=== PATIENT | female | born 1985 | race African-American/Black ===

== ENCOUNTER 2017-02-05 05:53 | Inpatient (IN) | payer OTHER ==
[~2017-02-05] VITALS: Ht 167.6 cm; Wt 97.5 kg
[2017-02-05] MEDS ORDERED: morphine 4 MG/ML VIAL IV STA (06:39)
[2017-02-05] MEDS ORDERED: ONDANSETRON 4 MG INJ IV STA (06:39)
[2017-02-05] MEDS ORDERED: SOD CHLORIDE 0.9% 1,000 ML IV STA (06:39)
[2017-02-05 07:25] LABS: ADD SCAN DIFF NO
[2017-02-05 07:27] LABS: BASOPHILS % 0.2 % (0.0-2.0); EOSINOPHILS % 0.4 % (0.0-7.0); HEMATOCRIT 45.2 % (37.0-47.0); HEMOGLOBIN 14.6 g/dl (12.0-16.0); LYMPHOCYTES # 1.6 10^3/ul (0.8-2.9); LYMPHOCYTES % 15.6 % (15.0-51.0); MEAN CORPUSCULAR HEMOGLOBIN 27.3 pg (29.0-33.0); MEAN CORPUSCULAR HGB CONC 32.3 g/dl (32.0-37.0); MEAN CORPUSCULAR VOLUME 84.6 fl (82.0-101.0); MEAN PLATELET VOLUME 9.6 fl (7.4-10.4); MONOCYTE # 0.6 10^3/ul (0.3-0.9); MONOCYTES % 5.4 % (0.0-11.0); NEUTROPHIL # 8.1 10^3/ul (1.6-7.5); NEUTROPHILS % 77.8 % (39.0-77.0); PLATELET COUNT 329 10^3/UL (140-415); RED BLOOD COUNT 5.34 10^6/ul (4.20-5.40); RED CELL DISTRIBUTION WIDTH 14.1 % (11.5-14.5); WHITE BLOOD COUNT 10.5 10^3/ul (4.8-10.8)
[2017-02-05 07:33] LABS: ADD UMIC NO; URINE BILIRUBIN (Dip) NEGATIVE (NEGATIVE); URINE BLOOD (Dip) NEGATIVE (NEGATIVE); URINE COLOR LT. YELLOW (YELLOW); URINE GLUCOSE (Dip) NEGATIVE (NEGATIVE); URINE KETONES (Dip) 3+ (NEGATIVE); URINE LEUKOCYTE ESTERASE (Dip) NEGATIVE (NEGATIVE); URINE NITRITE (Dip) NEGATIVE (NEGATIVE); URINE TOTAL PROTEIN (Dip) NEGATIVE (NEGATIVE); URINE UROBILINOGEN (Dip) 0.2 E.U./dL (0.1-1.0)
--- NOTE | 2017-02-05 07:45 | RADRPT ---
PROCEDURE: US Abdomen. CLINICAL INDICATION: Abdominal pain TECHNIQUE: Sweet scale and color Doppler imaging of the right upper quadrant COMPARISON: 08/16/2013 FINDINGS: The aorta and visualized inferior vena cava are unremarkable in appearance. The liver is homogeneou s in echotexture and no focal liver lesions are seen. A small amount of sludge is seen in the gallbl adder. No Pineda's sign was reported. No wall thickening or pericholecystic fluid was seen. No int ra or extrahepatic biliary dilatation is seen. The common bile duct measures 4 mm in maximal dimens ion. The right kidney measures 9.2 cm. No hydronephrosis or renal calculi are seen. The pancreas i s partially obscured by bowel gas. No ascites is seen. IMPRESSION: Study slightly limited by bowel gas. Sludge in the gallbladder. Otherwise negative. RPTAT: HLBE Physician Cristina Date Time Electronically viewed and signed by Daina Dominguez Physician on 02/05/2017 07:45 ANGEL/
[2017-02-05 07:48] LABS: ALBUMIN/GLOBULIN RATIO 1.56; BILIRUBIN,INDIRECT 0.4 mg/dl (0-1.1); BILIRUBIN,TOTAL 0.4 mg/dl (0.2-1.3); CALCIUM 9.8 mg/dl (8.4-10.2); CREATININE 0.95 mg/dl (0.44-1.00); POTASSIUM 3.8 mmol/L (3.5-5.1); TOTAL PROTEIN 8.2 g/dl (6.1-8.1)
[2017-02-05] MEDS ORDERED: METOCLOPRAMIDE 10 MG INJ IV ONE (08:00)
--- NOTE | 2017-02-05 08:26 | ERA ---
ER Documentation Chief Complaint Date/Time DATE: 02/05/17 TIME: 08:09 Chief Complaint epigastric sharp pain,NV HPI This is a 31 year old female presenting to the emergency department complaining of generalized abdominal pain, nausea, nonbilious, nonbloody vomiting for the past 1.5 week with new onset of diarrhea that started this morning. Patient states pain is in all quadrants but worse in the epigastric region. She denies fevers, dysuria, melena, hematochezia, chest pain, shortness of breath. Patient has been seen at [facility] on 01/31 in which she received blood work and CT imaging that was normal. She was discharged with sucralfate, antacid, Pepcid, and Tylenol no 3. She returned on 02/02 to [facility], in which they have done blood work and sent her home. Patient states medications do not work, she is unable to keep any food down. Patient states she saw her primary care physician yesterday and they are in process of referring her to a GI specialist. She returns to the emergency department today, stating her abdominal pain worsened with diarrhea ROS All systems reviewed and are negative except as per history of present illness. Medications Home Meds No Active Prescriptions or Reported Meds Allergies Allergies: Coded Allergies: No Known Allergy (Unverified , 08/16/13) PMhx/Soc Medical and Surgical Hx: pt denies Medical Hx, pt denies Surgical Hx History of Surgery: No Anesthesia Reaction: No Hx Neurological Disorder: No Hx Respiratory Disorders: No Hx Cardiac Disorders: No Hx Psychiatric Problems: No Hx Miscellaneous Medical Probl: No Hx Alcohol Use: No Hx Substance Use: Yes (marijuana) Hx Tobacco Use: No Smoking Status: Never smoker Physical Exam Vitals Vital Signs Date Time Temp Pulse Resp B/P Pulse Ox O2 Delivery O2 Flow Rate FiO2 02/05/17 06:00 97.7 66 18 131/61 99 Physical Exam GENERAL: well-developed/well-nourished, in no apparent distress, non-toxic appearing. Patient is hunched over and uncooperative HENT: NC/AT, dry mouth and chapped lips EYES: Conjunctiva normal NECK: Supple, no lymphadenopathy PULM: CTA bilaterally, no rales, rhonchi, or wheezing heard CV: Normal S1S2, RRR, good capillary refill GI: Soft, non-distended, tender to palpation in all quadrants, mostly in the epigastric region Normal bowel sounds, no masses or organomegaly felt on exam No gross peritonitis, no bruits Negative Rovsing, negative Pineda, negative McBurney's point, Negative CVAT BACK: No masses EXT: No clubbing, cyanosis, or edema NEURO: Alert and Orientated SKIN: Intact, normal turgor PSYCH: No SI or HI Result Diagram: 02/05/17 0650 02/05/17 0650 Results 24 hrs Laboratory Tests Test 02/05/17 06:40 02/05/17 06:50 Urine Color LT. YELLOW Urine Clarity CLEAR Urine pH 7.0 Urine Specific [place] 1.015 Urine Ketones 3+ Urine Nitrite NEGATIVE Urine Bilirubin NEGATIVE Urine Urobilinogen 0.2 E.U./dL Urine Leukocyte Esterase NEGATIVE Urine Hemoglobin NEGATIVE Urine Glucose NEGATIVE% Urine Total Protein NEGATIVE White Blood Count 10.510^3/ul Red Blood Count 5.3410^6/ul Hemoglobin 14.6g/dl Hematocrit 45.2% Mean Corpuscular Volume 84.6fl Mean Corpuscular Hemoglobin 27.3pg Mean Corpuscular Hemoglobin Concent 32.3g/dl Red Cell Distribution Width 14.1% Platelet Count 49626^3/UL Mean Platelet Volume 9.6fl Neutrophils % 77.8% Lymphocytes % 15.6% Monocytes % 5.4% Eosinophils % 0.4% Basophils % 0.2% Nucleated Red Blood Cells % 0.0/100WBC Neutrophils # 8.110^3/ul Lymphocytes # 1.610^3/ul Monocytes # 0.610^3/ul Eosinophils # 0.010^3/ul Basophils # 0.010^3/ul Nucleated Red Blood Cells # 0.010^3/ul Sodium Level 142mmol/L Potassium Level 3.8mmol/L Chloride Level 103mmol/L Carbon Dioxide Level 24mmol/L Anion Gap 19 Blood Urea Nitrogen 14mg/dl Creatinine 0.95mg/dl Glucose Level 112mg/dl Calcium Level 9.8mg/dl Total Bilirubin 0.4mg/dl Direct Bilirubin 0.00mg/dl Indirect Bilirubin 0.4mg/dl Aspartate Amino Transf (AST/SGOT) 22IU/L Alanine Aminotransferase (ALT/SGPT) 47IU/L Alkaline Phosphatase 117IU/L Total Protein 8.2g/dl Albumin 5.0g/dl Globulin 3.20g/dl Albumin/Globulin Ratio 1.56 Lipase 193U/L Serum HCG, Qualitative NEGATIVE Current Medications Medications (Trade) Dose Ordered Sig/Shalom Route PRN Reason Start Time Stop Time Status Last Admin Dose Admin Sodium Chloride (NS) 1,000 ml @ 1,000 mls/hr Q1H STAT IV 02/05/17 06:39 02/05/17 07:38 DC 02/05/17 07:00 Morphine Sulfate (morphine) 6 mg ONCE STAT IV 02/05/17 06:39 02/05/17 06:43 DC 02/05/17 06:59 Ondansetron HCl (Zofran Inj) 4 mg ONCE STAT IV 02/05/17 06:39 02/05/17 06:43 DC 02/05/17 07:00 Metoclopramide HCl (Reglan) 10 mg ONCE ONCE IV 02/05/17 08:00 02/05/17 08:01 DC 02/05/17 07:55 IV Flush 10 ml 10 ml STK-MED ONCE .ROUTE 02/05/17 09:38 02/05/17 09:39 DC Sodium Chloride (NS) 100 ml @ ud STK-MED ONCE .ROUTE 02/05/17 09:38 02/05/17 09:39 DC Iohexol (Omnipaque 300mg/ ml) 150 ml STK-MED ONCE .ROUTE 02/05/17 09:38 02/05/17 09:39 DC Procedures/MDM This is a 31 year old female accompanied with mother presenting to the emergency department complaining of worsening generalized abdominal pain, nausea , nonbilious, nonbloody vomiting for the past 1.5 week with new onset of diarrhea that started this morning. I have reviewed patient's chart before and she has been seen here before for similar complaints. I have consulted colleague at [facility]. Patient has been seen at [facility] on 01/31 in which she received blood work and CT imaging that was normal. She was discharged with sucralfate, antacid, Pepcid, and Tylenol no 3. She returned on 02/02 to [facility], in which they have done blood work and sent her home. IV access is established. Lab work was drawn. CBC did not show any evidence of leukocytosis or anemia. CMP did not show any evidence of renal, liver, or electrolyte abnormalities. Lipase was normal. UA did not show any evidence of hemoglobin or urinary tract infection. Gallbladder US: Study slightly limited by bowel gas. Sludge in the gallbladder. Otherwise negative. CT abd and pelvis without contrast: No acute intra-abdominal nor intrapelvic process. Incidentally noted are bilateral pars defects at L5-S1 resulting in 8 mm of anterolisthesis of L5 relative to S1. Patient diagnostic testing was unremarkable however since patient went to the emergency department 3 times in 1 week she will be admitted for further evaluation and management for intractable abdominal pain. I discussed with my supervising physician Dr. Iverson in which he will contact the hospitalist on site for admission. Patient is stable to be transferred to [facility] floor Departure Diagnosis: Primary Impression: Abdominal pain Condition: Serious ROBERT PRESLEY PA-C Feb 05, 2017 08:22
[2017-02-05] MEDS ORDERED: SOD CHLORIDE 0.9% 100 ML ONE (09:38)
[2017-02-05] MEDS ORDERED: IOHEXOL 300MG/ML 150 ML BTL ONE (09:38)
--- NOTE | 2017-02-05 10:39 | RADRPT ---
PROCEDURE: CT Abdomen and Pelvis with contrast. CLINICAL INDICATION: Flu-like symptoms TECHNIQUE: CT scan of the abdomen and pelvis with contrast was performed on a multi-detector high- resolution CT scanner. The patient was scanned following the uncomplicated intravenous administrati on of 100 cc of Omnipaque 300. Coronal and sagittal reformatted images were obtained from the axial source images. Images were reviewed on a high-resolution PACS workstation. The total exam CTDI equa ls 17.7 mGy and the total exam DLP equals 1076 mGy-cm. COMPARISON: None. FINDINGS: Limited evaluation of the lung bases are clear. The liver, spleen, bilateral adrenal glands, pancreas, and gallbladder are normal-appearing. No biliary dilatation. The portal vein is patent. Aside from a sub centimeter low density lesion in the left renal mid pole which may represent a cyst , the bilateral kidneys are normal-appearing without hydronephrosis nor suspicious renal mass. The small and large bowel are thin-walled and nondilated without evidence for obstruction. The appen bobby is normal. Urinary bladder is grossly normal. The uterus is grossly normal. Bilateral adnexa are within juan l limits. Trace pelvic free fluid is likely physiologic. There are bilateral L5-S1 pars defects which results in 8 mm of anterolisthesis of L5 relative to S1 . Bilateral pars defects also present at L2-L3 without spondylolisthesis at this level. No suspicio us osseous lesions. IMPRESSION: No acute intra-abdominal nor intrapelvic process. Incidentally noted are bilateral pars defects at L5-S1 resulting in 8 mm of anterolisthesis of L5 re lative to S1. Physician Marcin Date Time Electronically viewed and signed by Physician Marcin on 02/05/2017 10:39 ML/
[2017-02-05] MEDS ORDERED: ONDANSETRON 4 MG INJ IV PRN ×2 (12:30→13:30)
[2017-02-05] MEDS ORDERED: ACETAMINOPHEN 325 MG TAB PO PRN ×2 (12:30→13:30)
[2017-02-05] MEDS ORDERED: MAGNESIUM HYDROXIDE 30ML CUP PO PRN (13:30)
[2017-02-05] MEDS ORDERED: ACETAMINOPHEN 650 MG SUPP PR PRN (13:30)
[2017-02-05] MEDS ORDERED: NACL 0.9% 3 ML SYG IV SCH (13:30)
[2017-02-05] MEDS ORDERED: BISACODYL 10 MG SUPP PR PRN (13:30)
[2017-02-05] MEDS ORDERED: HYDROCODONE/APAP (5/325) TAB PO PRN ×2 (13:30)
[2017-02-05] MEDS ORDERED: DOCUSATE SODIUM 100 MG CAP PO PRN (13:30)
[2017-02-05] MEDS: SOD CHLORIDE 0.9% 1,000 ML IV SCH (13:35)
--- NOTE | 2017-02-05 15:01 | CONS ---
Date/Time of Note Date/Time of Note DATE: 02/05/17 TIME: 14:47 Assessment/Plan Assessment/Plan Additional Assessment/Plan Assessment * Intractable vomiting Plan * EGD risks and benefit explained to patient ,patient agreed plan procedure * Reglan 10 mg TID * PPI Consultation Date/Type/Reason Admit Date/Time Date of Consultation: Feb 05, 2017 Type of Consultation: Gastroenterology Reason for Consultation Intractable vomiting Referring Provider: CRISPIN WRIGHT Hx of Present Illness 31 year old female who presented in the ER because of epigastric pain and vomiting.Present condition apparently started 4 days prior to admission as vague epigastric pain with associated non bilious vomiting.Patient denies any hematochezia,melena,chest pain ,shortness of breath nor hematemesis..She consulted various Emergency room to no avail.1 day prior to admission, intractable vomiting recurred,consulted primary physician and was referred here for evaluation Emergency room course,CT Abdomen/pelvis revealed No acute intra-abdominal nor intrapelvic process. Incidentally noted are bilateral pars defects at L5-S1 resulting in 8 mm of anterolisthesis of L5 relative to S1.WBC10.5 Hemoglobin 14.6,hematocrit 45.2.Na 142,K 3.8.Presently ,Patient denies any episode of vomiting and abdominal pain Constitutional: improved, no complaints Eyes: no complaints ENT: no complaints Respiratory: no complaints Cardiovascular: no complaints Gastrointestinal: no complaints Genitourinary: no complaints Musculoskeletal: no complaints Skin: no complaints Neurologic: no complaints Endocrine: no complaints Lymphatic: no complaints Psychological: nl mood/affect, no complaints Immunologic: no complaints Past Medical History Medical History: no pertinent history Past Surgical History Past Surgical Hx: no surgical history Family History Significant Family History: no pertinent family hx Social History Smoking Status: Never smoker Exam/Review of Systems Vital Signs Vitals Vital Signs Date Time Temp Pulse Resp B/P Pulse Ox O2 Delivery O2 Flow Rate FiO2 02/05/17 06:00 97.7 66 18 131/61 99 Exam Constitutional: alert, oriented, well developed Psych: nl mood/affect Head: atraumatic, normocephalic Eyes: PERRL, nl conjunctiva, nl sclera ENMT: nl external ears & nose Neck: non-tender, supple Respiratory: clear to auscultation, normal air movement Cardiovascular: nl pulses, regular rate and rhythm Gastrointestinal: nl liver, spleen, non-tender, soft Musculoskeletal: nl extremities to inspection, nl gait and stance Extremities: normal pulses Neurological: DIVEMASTER II-XII intact, nl mental status, nl speech, nl strength Skin: nl turgor, No rash or lesions Lymph: nl lymph nodes Results Result Diagram: 02/05/17 0650 02/05/17 0650 Results 24 hrs Laboratory Tests Test 02/05/17 06:40 02/05/17 06:50 Urine Color LT. YELLOW Urine Clarity CLEAR Urine pH 7.0 Urine Specific [place] 1.015 Urine Ketones 3+ H Urine Nitrite NEGATIVE Urine Bilirubin NEGATIVE Urine Urobilinogen 0.2 E.U./dL Urine Leukocyte Esterase NEGATIVE Urine Hemoglobin NEGATIVE Urine Glucose NEGATIVE Urine Total Protein NEGATIVE White Blood Count 10.5 Red Blood Count 5.34 Hemoglobin 14.6 Hematocrit 45.2 Mean Corpuscular Volume 84.6 Mean Corpuscular Hemoglobin 27.3 L Mean Corpuscular Hemoglobin Concent 32.3 Red Cell Distribution Width 14.1 Platelet Count 329 Mean Platelet Volume 9.6 Neutrophils % 77.8 H Lymphocytes % 15.6 Monocytes % 5.4 Eosinophils % 0.4 Basophils % 0.2 Nucleated Red Blood Cells % 0.0 Neutrophils # 8.1 H Lymphocytes # 1.6 Monocytes # 0.6 Eosinophils # 0.0 Basophils # 0.0 Nucleated Red Blood Cells # 0.0 Sodium Level 142 Potassium Level 3.8 Chloride Level 103 Carbon Dioxide Level 24 Anion Gap 19 H Blood Urea Nitrogen 14 Creatinine 0.95 Glucose Level 112 Calcium Level 9.8 Total Bilirubin 0.4 Direct Bilirubin 0.00 Indirect Bilirubin 0.4 Aspartate Amino Transf (AST/SGOT) 22 Alanine Aminotransferase (ALT/SGPT) 47 Alkaline Phosphatase 117 Total Protein 8.2 H Albumin 5.0 H Globulin 3.20 Albumin/Globulin Ratio 1.56 Lipase 193 Serum HCG, Qualitative NEGATIVE Medications Medications Current Medications Sodium Chloride (NS) 1,000 ml @ 80 mls/hr [id number] IV Last administered on t 13:35; Admin Dose 80 MLS/HR; Start 02/05/17 at 13:10 Ondansetron HCl (Zofran Inj) 4 mg Q6H PRN IV NAUSEA AND/OR VOMITING; Start 02/05 at 13:30 Acetaminophen (Tylenol Tab) 650 mg Q6H PRN PO PAIN LEVEL 1-3 OR FEVER; Start at 13:30 Acetaminophen (Tylenol Supp) 650 mg Q6H PRN [place] PAIN LEVEL 1-3 OR FEVER; Start 02/05/17 at 13:30 Acetaminophen/ Hydrocodone Bitart ([place] (5/325)) 1 tab Q6H PRN PO MODERATE PAIN LEVEL 4-6; Start 02/05/17 at 13:30 Acetaminophen/ Hydrocodone Bitart ([place] (5/325)) 2 tab Q6H PRN PO SEVERE PAIN LEVEL 7-10; Start 02/05/17 at 13:30 Morphine Sulfate (morphine) 2 mg Q4H PRN IV SEVERE PAIN LEVEL 7-10; Start at 13:30 Docusate Sodium (Colace) 100 mg Q12H PRN PO CONSTIPATION; Start 02/05/17 at 13: 30 Magnesium Hydroxide (Milk Of Mag) 30 ml DAILY PRN PO CONSTIPATION; Start at 13:30 Bisacodyl (Dulcolax Supp) 10 mg DAILY PRN [place] CONSTIPATION; Start 02/05/17 at 13: 30 Pantoprazole (Protonix Iv) 40 mg DAILY@06 IV ; Start 02/06/17 at 06:00 MARIE VIVAS MD Feb 05, 2017 14:57
--- NOTE | 2017-02-05 16:31 | HP ---
Date/Time of Note Date/Time of Note DATE: 02/05/17 TIME: 16:24 Assessment/Plan VTE Prophylaxis VTE Prophylaxis Intervention: SCD's Assessment/Plan Chief Complaint/Hosp Course Assessment and plan 1. Intractable nausea and vomiting. CT scan of the abdomen was negative for any acute intra-abdominal findings. Lipase level was normal. Health Services Coordinator consulted. Follow up with recommendations. Will provide with IV hydration and keep n.p.o. for now. Will provide analgesics. Antipyretics will also be provided 2. Obesity. Weight reduction was advised. DVT prophylaxis: SCDs GERD prophylaxis: PPI Admission process 40 minutes Discussed plan of care with Dr. Ortiz Problems: HPI/ROS Admit Date/Time Admit Date/Time Hx of Present Illness There is a 31-year-old female with no reported past medical history who came [facility] due to reports of abdominal pain. Of note patient did report she had been having abdominal pain for 2 weeks duration with reported pain with oral consumption of food. She did report she went to the hospital twice at [facility] and was sent home with pain medication. At that time she was told she might have some gastritis. Patient did report that Her abdominal pain did continue to worsen and as such did come [facility] for further evaluation. She did have a gallbladder ultrasound that did show her to have some sludge in the gallbladder but otherwise negative study. Additionally CT scan of her abdomen did show her to have no acute intra-abdominal or intrapelvic process. Lipase level was noted at 193. BMP otherwise unremarkable. She remained afebrile and she did report no fevers or chills prior to her abdominal pain. She does report taking Maalox as well as Pepcid at home. She describes her pain as epigastric and going to midsternal area sharp-like in nature. She does have some emesis nonbilious nonbloody. She does report that her last bowel movement was this morning. She also reports having a regular bowel movements. No fevers or chills or chest pain or shortness of breath. We will evaluate her for the aformentiond issues ROS 12 point review of systems obtained and entirely negative except that mentioned in history of present illness Eyes: no complaints ENT: no complaints Respiratory: no complaints Cardiovascular: no complaints Gastrointestinal: no complaints Genitourinary: no complaints Musculoskeletal: no complaints Skin: no complaints Neurologic: no complaints Lymphatic: no complaints Psychological: nl mood/affect Immunologic: no complaints PMH/Family/Social Past Medical History Medical History: no pertinent history Past Surgical History Past Surgical Hx: no surgical history Social History Smoking Status: Never smoker Exam/Review of Systems Vital Signs Vitals Vital Signs Date Time Temp Pulse Resp B/P Pulse Ox O2 Delivery O2 Flow Rate FiO2 02/05/17 06:00 97.7 66 18 131/61 99 Exam Constitutional: alert, oriented Psych: anxiety Eyes: nl conjunctiva Neck: supple, No jvd Respiratory: clear to auscultation, normal air movement Cardiovascular: regular rate and rhythm Gastrointestinal: soft, tender Extremities: normal pulses Neurological: FRAMING MECHANIC II-XII intact, nl mental status, nl speech Skin: nl turgor Labs Result Diagram: 02/05/17 0650 02/05/17 0650 Medications Medications Current Medications Sodium Chloride (NS) 1,000 ml @ 80 mls/hr [id number] IV Last administered on t 13:35; Admin Dose 80 MLS/HR; Start 02/05/17 at 13:10 Ondansetron HCl (Zofran Inj) 4 mg Q6H PRN IV NAUSEA AND/OR VOMITING; Start 02/05 at 13:30 Acetaminophen (Tylenol Tab) 650 mg Q6H PRN PO PAIN LEVEL 1-3 OR FEVER; Start at 13:30 Acetaminophen (Tylenol Supp) 650 mg Q6H PRN [place] PAIN LEVEL 1-3 OR FEVER; Start 02/05/17 at 13:30 Acetaminophen/ Hydrocodone Bitart ([place] (5/325)) 1 tab Q6H PRN PO MODERATE PAIN LEVEL 4-6; Start 02/05/17 at 13:30 Acetaminophen/ Hydrocodone Bitart ([place] (5/325)) 2 tab Q6H PRN PO SEVERE PAIN LEVEL 7-10; Start 02/05/17 at 13:30 Morphine Sulfate (morphine) 2 mg Q4H PRN IV SEVERE PAIN LEVEL 7-10; Start at 13:30 Docusate Sodium (Colace) 100 mg Q12H PRN PO CONSTIPATION; Start 02/05/17 at 13: 30 Magnesium Hydroxide (Milk Of Mag) 30 ml DAILY PRN PO CONSTIPATION; Start at 13:30 Bisacodyl (Dulcolax Supp) 10 mg DAILY PRN [place] CONSTIPATION; Start 02/05/17 at 13: 30 Pantoprazole (Protonix Iv) 40 mg DAILY@06 IV ; Start 02/06/17 at 06:00 CRISPIN WRIGHT Feb 05, 2017 16:31
[2017-02-05] MEDS: morphine 2 MG INJ IV PRN ×2 (19:33→23:50)
[2017-02-05 21:02] VITALS: TEMP 97.9
[2017-02-05 21:31] VITALS: BP 111/55; RESP 18
[2017-02-05 23:26] VITALS: Ht 167.6 cm; Wt 97.5 kg
[2017-02-06] VITALS (8 sets, daily range): BP systolic 108–144; BP diastolic 51–77; PULSE 52–66; RESP 17–22
[2017-02-06] MEDS: SOD CHLORIDE 0.9% 1,000 ML IV SCH (01:44)
[2017-02-06] MEDS: PANTOPRAZOLE 40 MG INJ IV SCH (05:41)
[2017-02-06 06:51] LABS: ALBUMIN 3.8 g/dl (3.3-4.9); ALBUMIN/GLOBULIN RATIO 1.58; BILIRUBIN,INDIRECT 0.3 mg/dl (0-1.1); BILIRUBIN,TOTAL 0.3 mg/dl (0.2-1.3); CALCIUM 8.4 mg/dl (8.4-10.2); CHOL/HDL RATIO 2.7 RATIO; CREATININE 0.81 mg/dl (0.44-1.00); PHOSPHORUS 3.4 mg/dl (2.5-4.9); POTASSIUM 3.6 mmol/L (3.5-5.1); TOTAL PROTEIN 6.2 g/dl (6.1-8.1)
[2017-02-06 07:04] LABS: T3 UPTAKE 49.7 % (23.5-40.5)
[2017-02-06 07:18] LABS: THYROID STIMULATING HORMONE 0.428 MIU/L (0.465-4.680)
[2017-02-06] MEDS: morphine 2 MG INJ IV PRN ×3 (07:26→23:16)
[2017-02-06] MEDS: D5-0.2 NACL + KCL 20 MEQ 1,000 ML IV SCH ×2 (10:44→22:49)
--- NOTE | 2017-02-06 11:40 | PN ---
Date/Time of Note Date/Time of Note DATE: 02/06/17 TIME: 11:36 Assessment/Plan VTE Prophylaxis VTE Prophylaxis Intervention: SCD's Lines/Catheters IV Catheter Type (from Nrs): Peripheral IV Urinary Cath still in place: No Assessment/Plan Chief Complaint/Hosp Course Assessment and plan 1. Intractable nausea and vomiting. CT scan of the abdomen was negative for any acute intra-abdominal findings. Lipase level was normal. Tentative plan for EGD. Will follow up. Continue with analgesics and antiemetics as needed 2. Obesity. Weight reduction was advised. DVT prophylaxis: SCDs GERD prophylaxis: PPI Disposition and plan: Tentative plan for EGD at this time. Will follow up Discussed plan of care with Dr. Ortiz Problems: Subjective 24 Hr Interval Summary Free Text/Dictation Comfortable at present. No apparent distress seen. Exam/Review of Systems Vital Signs Vitals Vital Signs Date Time Temp Pulse Resp B/P Pulse Ox O2 Delivery O2 Flow Rate FiO2 02/06/17 09:30 97.6 59 17 108/51 98 02/05/17 21:02 Room Air Intake and Output 02/05/17 02/05/17 02/06/17 15:00 23:00 07:00 Intake Total 1000 ml 1240 ml Balance 1000 ml 1240 ml Exam Constitutional: alert, oriented Psych: no complaints Head: normocephalic Neck: supple, No jvd Respiratory: clear to auscultation, normal air movement Cardiovascular: regular rate and rhythm Gastrointestinal: soft, No tender Musculoskeletal: nl extremities to inspection, nl gait and stance Extremities: normal pulses Neurological: PRE BILLING SPECIALIST II-XII intact, nl mental status, nl speech Skin: nl turgor Results Result Diagram: 02/05/17 0650 02/06/17 0533 Results 24 hrs Laboratory Tests Test 02/06/17 05:33 Sodium Level 139 Potassium Level 3.6 Chloride Level 106 Carbon Dioxide Level 23 Anion Gap 14 Blood Urea Nitrogen 11 Creatinine 0.81 Glucose Level 60 #L Hemoglobin A1c 5.6 Calcium Level 8.4 Phosphorus Level 3.4 Magnesium Level 2.0 Total Bilirubin 0.3 Direct Bilirubin 0.00 Indirect Bilirubin 0.3 Aspartate Amino Transf (AST/SGOT) 15 Alanine Aminotransferase (ALT/SGPT) 34 Alkaline Phosphatase 76 Total Protein 6.2 # Albumin 3.8 # Globulin 2.40 Albumin/Globulin Ratio 1.58 Triglycerides Level 61 Cholesterol Level 100 LDL Cholesterol, Calculated 51 HDL Cholesterol 37 Cholesterol/HDL Ratio 2.7 Thyroid Stimulating Hormone (TSH) 0.428 L Free Thyroxine Index 3.38 Thyroxine (T4) 6.8 Triiodothyronine (T3) Uptake 49.7 H Medications Medications Current Medications Ondansetron HCl (Zofran Inj) 4 mg Q6H PRN IV NAUSEA AND/OR VOMITING; Start 02/05 at 13:30 Acetaminophen (Tylenol Tab) 650 mg Q6H PRN PO PAIN LEVEL 1-3 OR FEVER; Start at 13:30 Acetaminophen (Tylenol Supp) 650 mg Q6H PRN [place] PAIN LEVEL 1-3 OR FEVER; Start 02/05/17 at 13:30 Acetaminophen/ Hydrocodone Bitart ([place] (5/325)) 1 tab Q6H PRN PO MODERATE PAIN LEVEL 4-6 Last administered on 02/05/17 22:14; Admin Dose 1 TAB; Start 02/05 at 13:30 Acetaminophen/ Hydrocodone Bitart ([place] (5/325)) 2 tab Q6H PRN PO SEVERE PAIN LEVEL 7-10; Start 02/05/17 at 13:30 Morphine Sulfate (morphine) 2 mg Q4H PRN IV SEVERE PAIN LEVEL 7-10 Last administered on 02/06/17 07:26; Admin Dose 2 MG; Start 02/05/17 at 13:30 Docusate Sodium (Colace) 100 mg Q12H PRN PO CONSTIPATION; Start 02/05/17 at 13: 30 Magnesium Hydroxide (Milk Of Mag) 30 ml DAILY PRN PO CONSTIPATION; Start at 13:30 Bisacodyl (Dulcolax Supp) 10 mg DAILY PRN [place] CONSTIPATION; Start 02/05/17 at 13: 30 Pantoprazole 40 mg 40 mg DAILY@06 IV Last administered on 02/06/17 05:41; Admin Dose 40 MG; Start 02/06/17 at 06:00 Potassium Chloride/Dextrose/ Sod Cl (D5-1/4ns + KCl 20 Meq) 1,000 ml @ 80 mls/ hr [id number] IV Last administered on 02/06/17 10:44; Admin Dose 80 MLS/HR; Start 02/06/17 at 11:00 CRISPIN WRIGHT Feb 06, 2017 11:40
[2017-02-06] MEDS ORDERED: LIDOCAINE 2% (SDV) 5 ML INJ ONE (17:28)
[2017-02-06] MEDS ORDERED: PROPOFOL 20 ML ONE (17:28)
[2017-02-06] MEDS: METOCLOPRAMIDE 10 MG TAB PO SCH (22:33)
--- NOTE | 2017-02-07 03:31 | GILP ---
DATE OF PROCEDURE: 02/06/2017 PROCEDURE: Esophagogastroduodenoscopy with biopsies. PREMEDICATION: Monitored anesthesia care by anesthesiologist. SURGEON: Chuy Dangelo MD. INSTRUMENT USED: Olympus panendoscope. TECHNIQUE: After informed consent, with the patient/relatives understanding the procedure, its indic ations, potential risks and complications, including but not limited to: allergic reaction, bleeding , perforation or infection, and after all pertinent questions were answered to the patients satisfac tion, the patient/relatives signed witnessed informed consent. Following this, premedication was administered slowly IV push under careful cardiovascular and respi ratory monitoring with pulse oximetry, automatic blood pressure and electronic device monitor. Once the sedative effect was achieved the patient was place in the left lateral decubitus, the panen doscope was introduced and advanced under visual control. Careful examination of the upper gastrointestinal tract, both on insertion as well as withdrawal of the instrument disclosed the following findings: ESOPHAGUS: Distal esophagus shows mild erythema and edema of the mucosa at the EG junction. STOMACH: Upon entrance to the stomach, air was insufflated, the gastric zuluaga distended normally. There was moderate amounts of fluid in the stomach. The gastric mucosa shows erythema and edema of a moderate degree. Biopsies were obtained to rule out H. pylori infection. PYLORUS: The pylorus appears patent and within normal limits, with no evidence of gastric outlet ob struction. DUODENUM: The duodenal mucosa was carefully examined in the duodenal bulb as well as the second por tion of the duodenum and appears unremarkable with no evidence of duodenitis, ulcer or neoplasm. The instrument was then withdrawn, the patient tolerated the procedure well and was transfer out of the endoscopy suite awake, and in good condition to continue recovery under observation IMPRESSION: 1. Mild esophagitis. 2. Moderate amounts of fluid retained in the stomach consistent with gastroparesis. 3. Moderate gastritis, rule out Helicobacter pylori infection. PLAN: The patient will be treated with PPIs, Reglan 10 mg t.i.d. Pathology will be reviewed as leslie n as available. Diet will be advanced and further recommendations will depend on the patient's clin ical course. Dictated By: CHUY DANGELO MS/JANI Conf#: [id number] DID#: [id number] CC: ENOCH MCPHERSON MD;*EndCC*
[2017-02-07 05:31] LABS: ADD SCAN DIFF NO
[2017-02-07] MEDS: METOCLOPRAMIDE 10 MG TAB PO SCH ×2 (06:00→06:02)
[2017-02-07 06:01] LABS: BASOPHILS % 0.3 % (0.0-2.0); EOSINOPHILS # 0.1 10^3/ul (0.0-0.5); EOSINOPHILS % 1.9 % (0.0-7.0); HEMATOCRIT 38.5 % (37.0-47.0); HEMOGLOBIN 12.3 g/dl (12.0-16.0); LYMPHOCYTES # 2.2 10^3/ul (0.8-2.9); LYMPHOCYTES % 36.6 % (15.0-51.0); MEAN CORPUSCULAR HGB CONC 31.9 g/dl (32.0-37.0); MEAN CORPUSCULAR VOLUME 84.4 fl (82.0-101.0); MEAN PLATELET VOLUME 9.8 fl (7.4-10.4); MONOCYTE # 0.6 10^3/ul (0.3-0.9); MONOCYTES % 10.7 % (0.0-11.0); NEUTROPHIL # 2.9 10^3/ul (1.6-7.5); NEUTROPHILS % 50.2 % (39.0-77.0); PLATELET COUNT 291 10^3/UL (140-415); RED BLOOD COUNT 4.56 10^6/ul (4.20-5.40); RED CELL DISTRIBUTION WIDTH 13.7 % (11.5-14.5); WHITE BLOOD COUNT 5.9 10^3/ul (4.8-10.8)
[2017-02-07] MEDS: D5-0.2 NACL + KCL 20 MEQ 1,000 ML IV SCH (06:02)
[2017-02-07] MEDS: PANTOPRAZOLE 40 MG INJ IV SCH (06:02)
[2017-02-07 06:15] LABS: CALCIUM 8.6 mg/dl (8.4-10.2); CREATININE 0.79 mg/dl (0.44-1.00); POTASSIUM 3.7 mmol/L (3.5-5.1)
[2017-02-07 07:54] VITALS: BP 119/67; RESP 16
--- NOTE | 2017-02-07 10:02 | PDOCDIS ---
Discharge Instructions DIAGNOSIS Discharge Diagnosis: 1. gastroparesis 2. esophagitis CONDITION Patient Condition: Stable HOME CARE INSTRUCTIONS: Diet Instructions: Low Fat /Cholesterol FOLLOW UP/APPOINTMENTS Appointments 1. Follow up with Dr. Chuy Dangelo in one week CRISPIN WRIGHT Feb 07, 2017 10:02
[2017-02-07] MEDS ORDERED: ONDA-43 PO (10:03)
[2017-02-07] MEDS ORDERED: OMEP40CA6 PO (10:03)
[2017-02-07] MEDS ORDERED: SENN-53 PO (10:03)
[2017-02-07] MEDS ORDERED: METO10TA96 PO (10:03)
[2017-02-07] MEDS ORDERED: CLAR500T39 PO (14:00)
[2017-02-07] MEDS ORDERED: OMEP20CA16 PO (14:00)
[2017-02-07] MEDS ORDERED: AMO500 PO (14:00)
--- NOTE | 2017-02-07 14:28 | PN ---
Date/Time of Note Date/Time of Note DATE: 02/07/17 TIME: 14:24 Assessment/Plan VTE Prophylaxis VTE Prophylaxis Intervention: ambulation Lines/Catheters IV Catheter Type (from [facility]): Peripheral IV Urinary Cath still in place: No Assessment/Plan Assessment/Plan Assessment * Chronic gastritis by EGD * Helicobacter pylori infection Plan * Stable for outpatient management * azithromycin/amoxicillin * PPI * Follow up after 4 weeks Subjective 24 Hr Interval Summary Free Text/Dictation * Course reviewed with RN * Patient seen and examined * NO abdominal pain * Biopsy Gastric body and antrum biopsy: -- Chronic gastritis, severe, active, involving antral mucosa. -- Numerous bacteria compatible with Helicobacter pylori are identified in a Giemsa stain (positive control concurrently reviewed). -- There is no evidence of intestinal metaplasia, dysplasia or malignancy. Exam/Review of Systems Vital Signs Vitals Vital Signs Date Time Temp Pulse Resp B/P Pulse Ox O2 Delivery O2 Flow Rate FiO2 02/07/17 07:54 98.0 16 119/67 94 02/06/17 19:36 51 02/06/17 18:06 Room Air Intake and Output 02/06/17 02/06/17 02/07/17 15:00 23:00 07:00 Intake Total 400 ml 500 ml 500 ml Balance 400 ml 500 ml 500 ml Exam Constitutional: alert Head: atraumatic, normocephalic Neck: non-tender, supple Respiratory: clear to auscultation, normal air movement Cardiovascular: nl pulses, regular rate and rhythm Gastrointestinal: nl liver, spleen, non-tender, soft Musculoskeletal: nl extremities to inspection, nl gait and stance Extremities: normal pulses Results Result Diagram: 02/07/17 0504 02/07/17 0504 Results 24 hrs Laboratory Tests Test 02/06/17 16:00 02/07/17 05:04 Bedside Glucose 75 White Blood Count 5.9 # Red Blood Count 4.56 Hemoglobin 12.3 Hematocrit 38.5 Mean Corpuscular Volume 84.4 Mean Corpuscular Hemoglobin 27.0 L Mean Corpuscular Hemoglobin Concent 31.9 L Red Cell Distribution Width 13.7 Platelet Count 291 Mean Platelet Volume 9.8 Neutrophils % 50.2 Lymphocytes % 36.6 Monocytes % 10.7 Eosinophils % 1.9 Basophils % 0.3 Nucleated Red Blood Cells % 0.0 Neutrophils # 2.9 Lymphocytes # 2.2 Monocytes # 0.6 Eosinophils # 0.1 Basophils # 0.0 Nucleated Red Blood Cells # 0.0 Sodium Level 139 Potassium Level 3.7 Chloride Level 105 Carbon Dioxide Level 27 Anion Gap 11 Blood Urea Nitrogen 8 Creatinine 0.79 Glucose Level 78 Calcium Level 8.6 Medications Medications Current Medications Ondansetron HCl (Zofran Inj) 4 mg Q6H PRN IV NAUSEA AND/OR VOMITING; Start 02/05 at 13:30 Acetaminophen (Tylenol Tab) 650 mg Q6H PRN PO PAIN LEVEL 1-3 OR FEVER; Start at 13:30 Acetaminophen (Tylenol Supp) 650 mg Q6H PRN [place] PAIN LEVEL 1-3 OR FEVER; Start 02/05/17 at 13:30 Acetaminophen/ Hydrocodone Bitart ([place] (5/325)) 1 tab Q6H PRN PO MODERATE PAIN LEVEL 4-6 Last administered on 02/05/17 22:14; Admin Dose 1 TAB; Start 02/05 at 13:30 Acetaminophen/ Hydrocodone Bitart ([place] (5/325)) 2 tab Q6H PRN PO SEVERE PAIN LEVEL 7-10; Start 02/05/17 at 13:30 Morphine Sulfate (morphine) 2 mg Q4H PRN IV SEVERE PAIN LEVEL 7-10 Last administered on 02/06/17 23:16; Admin Dose 2 MG; Start 02/05/17 at 13:30 Docusate Sodium (Colace) 100 mg Q12H PRN PO CONSTIPATION; Start 02/05/17 at 13: 30 Magnesium Hydroxide (Milk Of Mag) 30 ml DAILY PRN PO CONSTIPATION; Start at 13:30 Bisacodyl (Dulcolax Supp) 10 mg DAILY PRN [place] CONSTIPATION; Start 02/05/17 at 13: 30 Pantoprazole 40 mg 40 mg DAILY@06 IV Last administered on 02/07/17 06:02; Admin Dose 40 MG; Start 02/06/17 at 06:00 Potassium Chloride/Dextrose/ Sod Cl (D5-1/4ns + KCl 20 Meq) 1,000 ml @ 80 mls/ hr [id number] IV Last administered on 02/07/17 06:02; Admin Dose 80 MLS/HR; Start 02/06/17 at 11:00 Metoclopramide HCl (Reglan) 10 mg Q8 PO Last administered on 02/06/17t 22:33; Admin Dose 10 MG; Start 02/06/17 at 22:00 NANCY GONCALVES NP Feb 07, 2017 14:28
== END 2017-02-07 14:55 | disposition home or self-care (01) | DRG 392 ==
LOC: FTE 05:53 → MS2 12:13
PROVIDERS: ADMIT Internal Medicine; ATTEND Internal Medicine
PROC: 0DB68ZX Excision of Stomach, Via Natural or Artificial Opening Endoscopic, Diagnostic (ICD-10-PCS; principal; 2017-02-06 20:30)
DX: K20.8 Other esophagitis (principal); K31.84 Gastroparesis; E66.9 Obesity, unspecified; K29.50 Unspecified chronic gastritis without bleeding; B96.81 Helicobacter pylori [H. pylori] as the cause of diseases classified elsewhere; F12.10 Cannabis abuse, uncomplicated; Z68.34 Body mass index [BMI] 34.0-34.9, adult
CPT/HCPCS: 36415; 74177; 76705; 80048; 80053; 80061; 81003; 82962; 83036; 83690; 83735; 84100; 84436; 84443; 84479; 84703; 85025; 88305; 88312; 96361; 96374; 96375; 96376; C9113; J2270; J2405; J2765; J3480; J7030; Q9967

== ENCOUNTER 2017-06-03 08:57 | Emergency (ER) | payer OTHER ==
[~2017-06-03] VITALS: Ht 162.6 cm; Wt 90.0 kg
[~2017-06-03 08:57] MED LIST: AMOX500C2 PO; CLAR500T39 PO; METO10TA96 PO; OMEP20CA16 PO; ONDA-43 PO; SENN-53 PO
[2017-06-03 08:59] VITALS: Ht 162.6 cm; Wt 90.0 kg
[2017-06-03] MEDS ORDERED: morphine 4 MG/ML VIAL IV STA (09:22)
[2017-06-03] MEDS ORDERED: ONDANSETRON 4 MG INJ IV STA (09:22)
[2017-06-03] MEDS ORDERED: SOD CHLORIDE 0.9% 1,000 ML IV STA (09:22)
[2017-06-03 09:49] LABS: BASOPHILS % 0.2 % (0.0-2.0); EOSINOPHILS # 0.1 10^3/ul (0.0-0.5); EOSINOPHILS % 0.7 % (0.0-7.0); HEMATOCRIT 41.6 % (37.0-47.0); HEMOGLOBIN 13.5 g/dl (12.0-16.0); LYMPHOCYTES # 1.4 10^3/ul (0.8-2.9); MEAN CORPUSCULAR HEMOGLOBIN 27.7 pg (29.0-33.0); MEAN CORPUSCULAR HGB CONC 32.5 g/dl (32.0-37.0); MEAN CORPUSCULAR VOLUME 85.4 fl (82.0-101.0); MEAN PLATELET VOLUME 9.4 fl (7.4-10.4); MONOCYTE # 0.5 10^3/ul (0.3-0.9); MONOCYTES % 5.5 % (0.0-11.0); NEUTROPHIL # 7.1 10^3/ul (1.6-7.5); NEUTROPHILS % 78.3 % (39.0-77.0); PLATELET COUNT 259 10^3/UL (140-415); RED BLOOD COUNT 4.87 10^6/ul (4.20-5.40); RED CELL DISTRIBUTION WIDTH 14.3 % (11.5-14.5)
--- NOTE | 2017-06-03 10:06 | RADRPT ---
PROCEDURE: US Abdomen. CLINICAL INDICATION: abdominal pain TECHNIQUE: Multiple real-time images were acquired of the patient's right upper quadrant abdomen a nd retroperitoneum utilizing a high resolution transducer. COMPARISON: US ABDOMEN 02/05/2017 FINDINGS: The liver demonstrates normal echogenicity. The liver is normal in size and no focal solid lesions are seen. The liver measures 16.3 cm in length. The portal vein is patent with normal direction of f low. No intrahepatic biliary dilatation is seen. No gallstones are identified within the gallbladder. There is no pericholecystic fluid or gallbladd er wall thickening. The common bile duct measures 4 mm in maximal dimension. The visualized portions of the pancreas are unremarkable. The tail of the pancreas is not seen. No free fluid is identified. The right kidney is normal in size, and demonstrate normal echogenicity and cortical thickness. The right kidney measures 9.7 cm in long dimension. There is no evidence of hydronephrosis. There are no kidney stones. RPTAT: AA IMPRESSION: Unremarkable right upper quadrant abdominal ultrasound. .Miguel Carrasco MD, Date Time Electronically viewed and signed by .Miguel Carrasco MD, on 06/03/2017 10:05 .S/
[2017-06-03 10:07] LABS: ALBUMIN/GLOBULIN RATIO 1.17; BILIRUBIN,INDIRECT 0.2 mg/dl (0-1.1); BILIRUBIN,TOTAL 0.2 mg/dl (0.2-1.3); CALCIUM 9.7 mg/dl (8.4-10.2); CREATININE 0.81 mg/dl (0.44-1.00); POTASSIUM 3.8 mmol/L (3.5-5.1); TOTAL PROTEIN 7.4 g/dl (6.1-8.1)
[2017-06-03] MEDS ORDERED: morphine 2 MG INJ IV STA (10:22)
[2017-06-03 10:27] LABS: ADD UMIC YES; UR ASCORBIC ACID NEGATIVE (NEGATIVE); UR BACTERIA FEW /HPF (NONE SEEN); UR BILIRUBIN (Dip) NEGATIVE (NEGATIVE); UR BLOOD (Dip) 2+ mg/dL (NEGATIVE); UR CLARITY CLOUDY (CLEAR); UR COLOR YELLOW (YELLOW); UR GLUCOSE (Dip) NEGATIVE (NEGATIVE); UR KETONES (Dip) 2+ mg/dL (NEGATIVE); UR LEUKOCYTE ESTERASE (Dip) TRACE Leu/ul (NEGATIVE); UR MUCUS FEW /HPF (NONE SEEN); UR NITRITE (Dip) NEGATIVE (NEGATIVE); UR RBC > 182 /HPF (0-5); UR SPECIFIC GRAVITY (Dip) 1.027 (1.003-1.030); UR SQUAMOUS EPITHELIAL CELL FEW /HPF (FEW); UR TOTAL PROTEIN (Dip) 2+ mg/dl (NEGATIVE); UR UROBILINOGEN (Dip) NEGATIVE (NEGATIVE)
[2017-06-03] MEDS ORDERED: ACETAMINOPHEN 500 MG TAB PO STA (10:50)
[2017-06-03] MEDS ORDERED: PANTOPRAZOLE (EC) 40 MG TAB PO ONE (11:00)
[2017-06-03] MEDS ORDERED: HYDROCODONE/APAP (5/325) TAB PO ONE (11:00)
[2017-06-03] MEDS ORDERED: LIDOCAINE/MYLANTA 40 ML BTL PO ONE (11:00)
[2017-06-03] MEDS ORDERED: PANT40TA3 PO (11:26)
[2017-06-03] MEDS ORDERED: TRAM50TA2 PO (11:27)
[2017-06-03] MEDS ORDERED: ACET500C5 PO (11:27)
[2017-06-03] MEDS ORDERED: SOD CHLORIDE 0.9% 500 ML IV ONE (12:00)
[2017-06-03] MEDS ORDERED: METOCLOPRAMIDE 10 MG INJ IV ONE (12:00)
--- NOTE | 2017-06-03 12:02 | ERD ---
ER Documentation Chief Complaint Date/Time DATE: 06/03/17 TIME: 11:56 Chief Complaint ap,nausea,vomiting today HPI Patient is a 32-year-old female with a past medical history of gastritis, gastroparesis, H. pylori presents to the emergency department for concerns of vomiting which started this morning. She reports she is vomited approximately 10 times, nonbloody nonbilious. Patient denies any fevers however she does admit to chills. Patient denies any diarrhea or urinary symptoms. Patient denies any marijuana or alcohol use. Patient reports eating taco meat for dinner last night. Patient is currently on her menstrual period. Patient reports taking Reglan at home, however she states that she ran out of her PPI. Of note on 02-06-17 and underwent an EGD which was noted to show esophagitis and gastroparesis. ROS All systems reviewed and are negative except as per history of present illness. Medications Home Meds Active Scripts Tramadol HCl (Tramadol HCl) 50 Mg Tablet, 50 MG PO Q4 Y for PAIN, #7 TAB Prov:RENETTA SHAH PA-C 06/03/17 Acetaminophen* (Tylophen*) 500 Mg Capsule, 1 CAP PO Q6H Y for PAIN AND OR ELEVATED TEMP, #20 CAP Prov:RENETTA SHAH PA-C 06/03/17 Pantoprazole* (Protonix*) 40 Mg Tablet., 40 MG PO DAILY, #20 TAB Prov:RENETTA SHAH PA-C 06/03/17 Omeprazole* (Omeprazole*) 20 Mg Capsule.dr, 20 MG PO BID, #60 CAP Prov:CRISPIN WRIGHT 02/07/17 Amoxicillin* (Amoxicillin*) 500 Mg Cap, 1000 MG PO BID, #28 CAP Prov:CRISPIN WRIGHT 02/07/17 Clarithromycin* (Biaxin*) 500 Mg Tablet, 500 MG PO BID, #28 TAB Prov:CRISPIN WRIGHT 02/07/17 Sennosides* (Senna Lax*) 8.6 Mg Tablet, 1 TAB PO Q12H Y for CONSTIPATION, #30 TAB Prov:CRISPIN WRIGHT 02/07/17 Ondansetron Hcl* (Zofran*) 4 Mg Tab, 4 MG PO Q4H Y for NAUSEA AND OR VOMITING, # 30 TAB Prov:CRISPIN WRIGHT 02/07/17 Metoclopramide Hcl* (Metoclopramide Hcl*) 10 Mg Tablet, 10 MG PO Q8 for 30 Days , TAB 1 Refill Prov:CRISPIN WRIGHT 02/07/17 Allergies Allergies: Coded Allergies: No Known Allergy (Unverified , 08/16/13) PMhx/Soc History of Surgery: No Anesthesia Reaction: No Hx Neurological Disorder: No Hx Respiratory Disorders: No Hx Cardiac Disorders: No Hx Psychiatric Problems: No Hx Miscellaneous Medical Probl: No Hx Alcohol Use: Yes (QUIT 2 YEARS AGO) Hx Substance Use: No Hx Tobacco Use: No Smoking Status: Never smoker FmHx Family History: No diabetes Physical Exam Vitals Vital Signs Date Time Temp Pulse Resp B/P Pulse Ox O2 Delivery O2 Flow Rate FiO2 06/03/17 12:52 98.2 71 15 116/64 100 Room Air 06/03/17 10:31 40 15 113/68 100 Room Air 06/03/17 08:59 98.2 60 18 150/80 99 Physical Exam GENERAL: Well-developed, well-nourished female. Dry heaving. HEAD: Normocephalic, atraumatic. No deformities or ecchymosis noted. EYES: Pupils are equally reactive bilaterally. EOMs grossly intact. No conjunctival erythema. ENT: External ear without any masses or tenderness. Auditory canals clear bilaterally. TM visualized bilaterally, non-erythematous, non-bulging. Nasal mucosa pink with no discharge. Oropharynx is pink without any tonsillar erythema or exudates. No uvula deviation. No kissing tonsils. NECK: Supple, no lymphadenopathy. No meningeal signs. Lungs: Clear to auscultation bilaterally. No rhonchi, wheezing, rales or coarse breath sounds. HEART: Regular rate and rhythm. No murmurs, rubs or gallops. ABDOMEN: No scars, ecchymosis or rashes noted. Soft, nondistended. Tender to palpation in the epigastric and RUQ. No rebound tenderness, no guarding. (-) McBurney's point tenderness. No CVA tenderness. EXTREMITIES: Equal pulses bilaterally. No peripheral clubbing, cyanosis or edema. No unilateral leg swelling. NEUROLOGIC: Alert. Interactive and playful throughout exam. Moving all four extremities. Normal speech. Steady gait. SKIN: Normal color. Warm and dry. No rashes or lesions. Result Diagram: 06/03/1792106/03/17921 Results 24 hrs Laboratory Tests Test 06/03/17 09:22 06/03/17 09:30 White Blood Count 9.010^3/ul Red Blood Count 4.8710^6/ul Hemoglobin 13.5g/dl Hematocrit 41.6% Mean Corpuscular Volume 85.4fl Mean Corpuscular Hemoglobin 27.7pg Mean Corpuscular Hemoglobin Concent 32.5g/dl Red Cell Distribution Width 14.3% Platelet Count 85316^3/UL Mean Platelet Volume 9.4fl Neutrophils % 78.3% Lymphocytes % 15.0% Monocytes % 5.5% Eosinophils % 0.7% Basophils % 0.2% Nucleated Red Blood Cells % 0.0/100WBC Neutrophils # 7.110^3/ul Lymphocytes # 1.410^3/ul Monocytes # 0.510^3/ul Eosinophils # 0.110^3/ul Basophils # 0.010^3/ul Nucleated Red Blood Cells # 0.010^3/ul Sodium Level 140mmol/L Potassium Level 3.8mmol/L Chloride Level 105mmol/L Carbon Dioxide Level 26mmol/L Anion Gap 13 Blood Urea Nitrogen 14mg/dl Creatinine 0.81mg/dl Glucose Level 150mg/dl Calcium Level 9.7mg/dl Total Bilirubin 0.2mg/dl Direct Bilirubin 0.00mg/dl Indirect Bilirubin 0.2mg/dl Aspartate Amino Transf (AST/SGOT) 20IU/L Alanine Aminotransferase (ALT/SGPT) 27IU/L Alkaline Phosphatase 111IU/L Total Protein 7.4g/dl Albumin 4.0g/dl Globulin 3.40g/dl Albumin/Globulin Ratio 1.17 Lipase 84U/L Urine Color YELLOW Urine Clarity CLOUDY Urine pH 9.0 Urine Specific Allgood 1.027 Urine Ketones 2+mg/dL Urine Nitrite NEGATIVEmg/dL Urine Bilirubin NEGATIVEmg/dL Urine Urobilinogen NEGATIVEmg/dL Urine Leukocyte Esterase TRACELeu/ul Urine Microscopic RBC > 182/HPF Urine Microscopic WBC 11/HPF Urine Squamous Epithelial Cells FEW/HPF Urine Bacteria FEW/HPF Urine Mucus FEW/HPF Urine Hemoglobin 2+mg/dL Urine Glucose NEGATIVEmg/dL Urine Total Protein 2+mg/dl Current Medications Medications (Trade) Dose Ordered Sig/Shalom Route PRN Reason Start Time Stop Time Status Last Admin Dose Admin Sodium Chloride (NS) 1,000 ml @ 1,000 mls/hr Q1H STAT IV 06/03/17 09:22 06/03/17 10:21 DC 06/03/17 09:34 Morphine Sulfate (morphine) 4 mg ONCE STAT IV 06/03/17 09:22 06/03/17 09:23 DC 06/03/17 09:34 Ondansetron HCl (Zofran Inj) 4 mg ONCE STAT IV 06/03/17 09:22 06/03/17 09:23 DC 06/03/17 09:33 Morphine Sulfate (morphine) 2 mg ONCE STAT IV 06/03/17 10:22 06/03/17 10:42 DC Pantoprazole (Protonix Tab) 40 mg ONCE ONCE PO 06/03/17 11:00 06/03/17 11:01 DC 06/03/17 11:01 Acetaminophen/ Hydrocodone Bitart ([place] (5/325)) 1 tab ONCE ONCE PO 06/03/17 11:00 06/03/17 11:00 DC Miscellaneous Medication (Gi Cocktail (2)) 40 ml ONCE ONCE PO 06/03/17 11:00 06/03/17 11:01 DC 06/03/17 11:01 Acetaminophen (Tylenol Tab) 500 mg ONCE STAT PO 06/03/17 10:50 06/03/17 10:51 DC 06/03/17 11:01 Metoclopramide HCl 10 mg 10 mg ONCE ONCE IV 06/03/17 12:00 06/03/17 12:01 DC 06/03/17 12:09 Sodium Chloride (NS) 500 ml @ 500 mls/hr Q1H ONCE IV 06/03/17 12:00 06/03/17 12:59 DC 06/03/17 12:16 Procedures/MDM ED COURSE: The patient was stable throughout ED course. I kept the patient and/or family informed of laboratory and diagnostic imaging results throughout the ED course. EKG: Read by Dr. Ruby, attending physician. EKG shows sinus bradycardia at rate of 41 bpm. No arrhythmias, acute ST elevations or T wave changes were noted. DIAGNOSTIC IMAGING: Read by radiologist. Patient: ETHAN UMANA : 1985 Age: 32 Sex: F MR #: [id number] [facility] #: [id number] DOS: 06/03/17 0922 Ordering MD: RENETTA SHAH PA-C Location: FT Room/Bed: PROCEDURE: US Abdomen. CLINICAL INDICATION: abdominal pain TECHNIQUE: Multiple real-time images were acquired of the patient's right upper quadrant abdomen and retroperitoneum utilizing a high resolution transducer. COMPARISON: US ABDOMEN 02/05/2017 FINDINGS: The liver demonstrates normal echogenicity. The liver is normal in size and no focal solid lesions are seen. The liver measures 16.3 cm in length. The portal vein is patent with normal direction of flow. No intrahepatic biliary dilatation is seen. No gallstones are identified within the gallbladder. There is no pericholecystic fluid or gallbladder wall thickening. The common bile duct measures 4 mm in maximal dimension. The visualized portions of the pancreas are unremarkable. The tail of the pancreas is not seen. No free fluid is identified. The right kidney is normal in size, and demonstrate normal echogenicity and cortical thickness. The right kidney measures 9.7 cm in long dimension. There is no evidence of hydronephrosis. There are no kidney stones. RPTAT: AA IMPRESSION: Unremarkable right upper quadrant abdominal ultrasound. .Miguel Carrasco MD, MD Date Time Electronically viewed and signed by .Miguel Carrasco MD, MD on 06/03/2017 10: 05 .S/ CC: RENETTA SHAH PA-C PROCEDURES: None. MEDICATIONS GIVEN: IV fluids, Zofran, morphine, Tylenol, GI cocktail, Reglan Patient tolerated medication well with no adverse reactions. MEDICAL DECISION MAKING: This is a 32-year-old female with history of esophagitis and gastroparesis who presents emergency department for concerns of epigastric pain, right upper quadrant pain, nausea and vomiting which started this morning. Vital signs were reviewed. Patient is afebrile. CBC showed no evidence of systemic infection or severe anemia. CMP showed no evidence of electrolyte abnormalities, severe acidosis, alkalosis, renal failure , or liver disease. Lipase showed no evidence of acute pancreatitis. UA showed +blood, however patient is on her menstrual period. Gallbladder ultrasound was unremarkable. Urine test was negative. Patient continued to have some in epigastric pain. Patient's pulse was noted to be 40 bpm. I discussed the patient's case with my supervising physician Dr. Ruby. No additional narcotic meds were given. EKG was obtained. Patient was given GI cocktail, Reglan and Tylenol. Upon second reassessment, patient was noted to be asleep during reassessment. I discussed the patient's bloodwork and imaging studies with the patient and her sister. All questions were answered. Patient was advised to hydrate well and follow up with her GI specialist. At this time, patient's presentation is most consistent with gastritis. I have a much lower clinical concern for acute coronary syndrome, AAA, mesenteric ischemia, lower lobe pneumonia, DKA, bowel perforation, bowel obstruction, cholecystitis, choledocholithiasis, pancreatitis, PUD, gastritis, GERD, UTI, pyelonephritis, nephrolithiasis, appendicitis, , ectopic . Of note patient's pulse was noted to be 71 bpm at time of discharge. PRESCRIPTIONS: Protonix, Tylenol, Tramadol Patient advised to continue Reglan at home DISCHARGE: At this time, patient is stable for discharge and outpatient management. Given a copy of all imaging studies and blood work obtained today. Patient was advised to follow-up with the GI specialist. Referral information given. I have instructed the patient to follow-up with his/her primary care physician in 1-2 days. I have instructed the patient to promptly return to the ER at any time for any new or worsening symptoms including increased pain, nausea, vomiting, diarrhea, fever, weakness or LOC. The patient and/or family expressed understanding of and agreement with this plan. All questions were answered. Home care instructions were provided. Disclaimer: Inadvertent spelling and grammatical errors are likely due to EHR/ dictation software use and do not reflect on the overall quality of patient care. Also, please note that the electronic time recorded on this note does not necessarily reflect the actual time of the patient encounter. Departure Diagnosis: Primary Impression: Nausea and vomiting Vomiting type: unspecified Vomiting Intractability: non-intractable Qualified Code: R11.2 - Non-intractable vomiting with nausea, unspecified vomiting type Additional Impression: Gastritis Gastritis type: unspecified gastritis Chronicity: acute Gastritis bleeding : presence of bleeding unspecified Qualified Code: K29.00 - Acute gastritis, presence of bleeding unspecified, unspecified gastritis type Condition: Stable Patient Instructions: Nausea and Vomiting-Adult Referrals: GABY JUARES MD (PCP) SANDRITA KENNEDY MD, RAHUL K. DESIGAN, GNANA MD EPHRAIM, PAUL D JOGANI, PIYUSH K MD KLASKY, IRV[place] Additional Instructions: Call your primary care doctor TOMORROW for an appointment during the next 1-2 days.See the doctor sooner or return here if your condition worsens before your appointment time. Follow up with GI specialist. RENETTA SHAH PA-C Jun 03, 2017 12:01
[2017-06-03 12:52] VITALS: BP 116/64; PULSE 71; RESP 15; TEMP 98.2
== END 2017-06-03 16:26 | disposition home or self-care (01) ==
LOC: FTE 08:57
DX: K29.00 Acute gastritis without bleeding (principal); R00.1 Bradycardia, unspecified
CPT/HCPCS: 36415; 76705; 80053; 81001; 83690; 85025; 93005; 96361; 96374; 96375; J2270; J2405; J2765; J7030; J7040; Z7502; Z7610

== ENCOUNTER 2017-07-27 18:36 | Emergency (ER) | payer OTHER ==
[~2017-07-27] VITALS: Ht 167.6 cm; Wt 90.7 kg
[~2017-07-27 18:36] MED LIST changes: +ACET500C5 PO; +PANT40TA3 PO; +TRAM50TA2 PO
[2017-07-27 18:44] VITALS: Ht 167.6 cm; Wt 90.7 kg
[2017-07-27] MEDS ORDERED: morphine 4 MG/ML VIAL IV STA (19:21)
[2017-07-27] MEDS ORDERED: ONDANSETRON 4 MG INJ IV STA (19:21)
[2017-07-27 19:47] LABS: BASOPHILS % 0.2 % (0.0-2.0); HEMOGLOBIN 13.2 g/dl (12.0-16.0); LYMPHOCYTES # 0.7 10^3/ul (0.8-2.9); LYMPHOCYTES % 7.6 % (15.0-51.0); MEAN CORPUSCULAR HEMOGLOBIN 28.2 pg (29.0-33.0); MEAN CORPUSCULAR HGB CONC 33.8 g/dl (32.0-37.0); MEAN CORPUSCULAR VOLUME 83.3 fl (82.0-101.0); MEAN PLATELET VOLUME 9.7 fl (7.4-10.4); MONOCYTE # 0.3 10^3/ul (0.3-0.9); MONOCYTES % 2.8 % (0.0-11.0); NEUTROPHIL # 8.7 10^3/ul (1.6-7.5); NEUTROPHILS % 88.8 % (39.0-77.0); PLATELET COUNT 233 10^3/UL (140-415); RED BLOOD COUNT 4.68 10^6/ul (4.20-5.40); RED CELL DISTRIBUTION WIDTH 14.4 % (11.5-14.5); WHITE BLOOD COUNT 9.8 10^3/ul (4.8-10.8)
[2017-07-27 20:02] LABS: ADD UMIC YES; UR ASCORBIC ACID NEGATIVE (NEGATIVE); UR BACTERIA FEW /HPF (NONE SEEN); UR BILIRUBIN (Dip) NEGATIVE (NEGATIVE); UR BLOOD (Dip) 2+ mg/dL (NEGATIVE); UR CLARITY SLIGHTLY CLOUDY (CLEAR); UR COLOR YELLOW (YELLOW); UR GLUCOSE (Dip) 1+ mg/dL (NEGATIVE); UR KETONES (Dip) 2+ mg/dL (NEGATIVE); UR LEUKOCYTE ESTERASE (Dip) 2+ Leu/ul (NEGATIVE); UR MUCUS FEW /HPF (NONE SEEN); UR NITRITE (Dip) NEGATIVE (NEGATIVE); UR RBC > 182 /HPF (0-5); UR SQUAMOUS EPITHELIAL CELL FEW /HPF (FEW); UR TOTAL PROTEIN (Dip) 2+ mg/dl (NEGATIVE); UR UROBILINOGEN (Dip) NEGATIVE (NEGATIVE)
[2017-07-27 20:04] LABS: ALBUMIN 4.4 g/dl (3.3-4.9); ALBUMIN/GLOBULIN RATIO 1.46; BILIRUBIN,INDIRECT 0.5 mg/dl (0-1.1); BILIRUBIN,TOTAL 0.5 mg/dl (0.2-1.3); CALCIUM 9.4 mg/dl (8.4-10.2); CREATININE 0.8 mg/dl (0.44-1.00); POTASSIUM 3.6 mmol/L (3.5-5.1); TOTAL PROTEIN 7.4 g/dl (6.1-8.1)
--- NOTE | 2017-07-27 20:28 | RADRPT ---
PROCEDURE: CT Abdomen and Pelvis without contrast. CLINICAL INDICATION: Abdominal pain with nausea vomiting. TECHNIQUE: CT scan of the abdomen and pelvis without contrast was performed on a multidetector hig h-resolution CT scanner. The patient was scanned without intravenous contrast. Coronal and sagittal reformatted images were obtained from the axial source images. Images were reviewed on a high-resol [employer] PACS workstation. The total exam CTDI equals 14.19 mGy and the total exam DLP equals 834.44 mG y-cm. DICOM images are available. One or more of the following dose reduction techniques were used: Automated exposure control. Adjustment of the mA and/or kV according to patient size. Use of iterative reconstruction technique. COMPARISON: CT abdomen and pelvis 02/05/2017. FINDINGS: CT abdomen: The lung bases are clear. The heart size is normal, without pericardial thickening or effusion. Th e liver is normal in size and density without focal mass or intrahepatic biliary dilatation. The sp jb is normal in size and homogeneous in density. The stomach is partially collapsed, but is gross ly unremarkable. The pancreas as visualized is normal. The gallbladder is unremarkable. There is n o evidence for biliary dilatation. The adrenal glands are symmetric and normal. The kidneys are sy mmetrically unremarkable as well. There are a few punctate 1-2 mm nonobstructing renal stones. The aorta is of normal caliber. There is no retroperitoneal lymphadenopathy. The kathie hepatis reg ion is clear. The bowel and mesentery, as visualized, are equally unremarkable. CT pelvis: The small bowel loops situated within the pelvis are unremarkable. The pelvic organs are normal. Th e pelvic sidewalls and inguinal regions are clear. The sigmoid colon and rectum are unremarkable. No mass, or lymphadenopathy is seen. There is trace free fluid in the pelvis. No acute inflammation is seen. There is grade 1 anterolisthesis of L5 and S1 related to bilateral pars defects. Pars def ects are also present at L2-L3 without spondylolisthesis. IMPRESSION: 1. No mass, lymphadenopathy, or focal acute inflammatory process is identified. 2. A few punctate 1-2 mm nonobstructing renal stones. No ureteral stone. No hydronephrosis. RPTAT: HHO .Amado Moreno MD, MD Date Time Electronically viewed and signed by .Amado Moreno MD, MD on 07/27/2017 20:27 .O/
[2017-07-27] MEDS ORDERED: ONDA4TAB14 PO (20:33)
[2017-07-27] MEDS ORDERED: CEPH-443 PO (20:33)
[2017-07-27] MEDS ORDERED: LOPE2CAP PO (20:33)
--- NOTE | 2017-07-27 20:36 | ERD ---
ER Documentation Chief Complaint Chief Complaint belly pain w/ N/V/D x 2 days HPI Patient is a 32-year-old female who presents complaining of abdominal pain in her mid abdomen as well as nausea vomiting and diarrhea for 2 days. No fever. She denies dysuria hematuria but does admit to increased frequency. She is currently on her menstrual period. ROS All systems reviewed and are negative except as per history of present illness. Medications Home Meds Active Scripts Ondansetron (Ondansetron Odt) 4 Mg Tab.rapdis, 4 MG PO Q6H Y for NAUSEA AND/OR VOMITING, #20 TAB Prov:CLAIRE FRASER PA-C 07/27/17 Cephalexin* (Keflex*) 500 Mg Capsule, 500 MG PO BID for 5 Days, CAP Prov:CLAIRE FRASER PA-C 07/27/17 Loperamide Hcl* (Imodium*) 2 Mg Capsule, 2 MG PO .AFTER EA LOOSE BM Y for DIARRHEA, #10 TAB Prov:CLAIRE FRASER PA-C 07/27/17 Tramadol HCl (Tramadol HCl) 50 Mg Tablet, 50 MG PO Q4 Y for PAIN, #7 TAB Prov:RENETTA SHAH PA-C 06/03/17 Acetaminophen* (Tylophen*) 500 Mg Capsule, 1 CAP PO Q6H Y for PAIN AND OR ELEVATED TEMP, #20 CAP Prov:RENETTA SHAH PA-C 06/03/17 Pantoprazole* (Protonix*) 40 Mg Tablet.dr, 40 MG PO DAILY, #20 TAB Prov:RENETTA SHAH PA-C 06/03/17 Omeprazole* (Omeprazole*) 20 Mg Capsule.dr, 20 MG PO BID, #60 CAP Prov:CRISPIN WRIGHT 02/07/17 Amoxicillin* (Amoxicillin*) 500 Mg Cap, 1000 MG PO BID, #28 CAP Prov:CRISPIN WRIGHT 02/07/17 Clarithromycin* (Biaxin*) 500 Mg Tablet, 500 MG PO BID, #28 TAB Prov:CRISPIN WRIGHT 02/07/17 Sennosides* (Senna Lax*) 8.6 Mg Tablet, 1 TAB PO Q12H Y for CONSTIPATION, #30 TAB Prov:CRISPIN WRIGHT 02/07/17 Ondansetron Hcl* (Zofran*) 4 Mg Tab, 4 MG PO Q4H Y for NAUSEA AND OR VOMITING, # 30 TAB Prov:CRISPIN WRIGHT 02/07/17 Metoclopramide Hcl* (Metoclopramide Hcl*) 10 Mg Tablet, 10 MG PO Q8 for 30 Days , TAB 1 Refill Prov:CRISPIN WRIGHT 02/07/17 Allergies Allergies: Coded Allergies: No Known Allergy (Unverified , 08/16/13) PMhx/Soc History of Surgery: No Anesthesia Reaction: No Hx Neurological Disorder: No Hx Respiratory Disorders: No Hx Cardiac Disorders: No Hx Psychiatric Problems: No Hx Miscellaneous Medical Probl: Yes (Gastritis) Hx Alcohol Use: Yes (QUIT 2 YEARS AGO) Hx Substance Use: No Hx Tobacco Use: Yes Smoking Status: Former smoker FmHx Family History: No diabetes Physical Exam Vitals Vital Signs Date Time Temp Pulse Resp B/P Pulse Ox O2 Delivery O2 Flow Rate FiO2 07/27/17 18:44 99.5 43 18 142/78 100 Physical Exam INITIAL VITAL SIGNS: Reviewed by me GENERAL: Awake, alert and oriented x 4, well appearing, nontoxic, speaking in full sentences. No acute distress HEAD: Atraumatic NECK: Supple. No masses. Full range of motion. No meningismus. No midline tenderness. EYES: EOMI. PERRL. THROAT: No tonilar erythema or edema. No exudates. Uvula midline. No kissing tonsils. RESPIRATORY: Clear to auscultation bilaterally. Symmetric chest wall rise. No wheezing or rales. No accessory muscle use. CV: Regular rate and rhythm. No murmurs, rubs, or gallops. ABDOMEN: Soft, non-distended. Nontender. Negative [place]. Negative McBurneys point tenderness. No CVA tenderness bilaterally. No guarding. No rebound. : Deffered. Result Diagram: 07/27/17192407/27/171924 Results 24 hrs Laboratory Tests Test 07/27/17 19:25 White Blood Count 9.810^3/ul Red Blood Count 4.6810^6/ul Hemoglobin 13.2g/dl Hematocrit 39.0% Mean Corpuscular Volume 83.3fl Mean Corpuscular Hemoglobin 28.2pg Mean Corpuscular Hemoglobin Concent 33.8g/dl Red Cell Distribution Width 14.4% Platelet Count 72139^3/UL Mean Platelet Volume 9.7fl Neutrophils % 88.8% Lymphocytes % 7.6% Monocytes % 2.8% Eosinophils % 0.0% Basophils % 0.2% Nucleated Red Blood Cells % 0.0/100WBC Neutrophils # 8.710^3/ul Lymphocytes # 0.710^3/ul Monocytes # 0.310^3/ul Eosinophils # 0.010^3/ul Basophils # 0.010^3/ul Nucleated Red Blood Cells # 0.010^3/ul Urine Color YELLOW Urine Clarity SLIGHTLY CLOUDY Urine pH 9.0 Urine Specific [place] 1.030 Urine Ketones 2+mg/dL Urine Nitrite NEGATIVEmg/dL Urine Bilirubin NEGATIVEmg/dL Urine Urobilinogen NEGATIVEmg/dL Urine Leukocyte Esterase 2+Denisha/ul Urine Microscopic RBC > 182/HPF Urine Microscopic WBC 21/HPF Urine Squamous Epithelial Cells FEW/HPF Urine Bacteria FEW/HPF Urine Mucus FEW/HPF Urine Hemoglobin 2+mg/dL Urine Glucose 1+mg/dL Urine Total Protein 2+mg/dl Sodium Level 142mmol/L Potassium Level 3.6mmol/L Chloride Level 103mmol/L Carbon Dioxide Level 22mmol/L Anion Gap 21 Blood Urea Nitrogen 15mg/dl Creatinine 0.80mg/dl Glucose Level 152mg/dl Calcium Level 9.4mg/dl Total Bilirubin 0.5mg/dl Direct Bilirubin 0.00mg/dl Indirect Bilirubin 0.5mg/dl Aspartate Amino Transf (AST/SGOT) 19IU/L Alanine Aminotransferase (ALT/SGPT) 27IU/L Alkaline Phosphatase 103IU/L Total Protein 7.4g/dl Albumin 4.4g/dl Globulin 3.00g/dl Albumin/Globulin Ratio 1.46 Lipase 56U/L Current Medications Medications (Trade) Dose Ordered Sig/Shalom Route PRN Reason Start Time Stop Time Status Last Admin Dose Admin Morphine Sulfate (morphine) 4 mg ONCE STAT IV 07/27/17 19:21 07/27/17 19:22 DC 07/27/17 19:33 Ondansetron HCl (Zofran Inj) 4 mg ONCE STAT IV 07/27/17 19:21 07/27/17 19:22 DC 07/27/17 19:33 Procedures/MDM Patients is alert, oriented, well appearing, and in no distress with normal vital signs. There is no fever, tachycardia, or tachypnea. The differential diagnosis includes but is not limited to appendicitis, cholelithiasis, cholecystitis, pancreatitis, hepatitis, gastritis, peptic ulcer disease, bowel obstruction, diverticulitis, renal disease including stones, torsion, AAA, pyelonephritis, and others. Patient's blood work is unremarkable but urine does show evidence of infection. CT scan shows some very small nonobstructing kidney stones. She is suitable for outpatient management and is discharged with Keflex Zofran and Imodium. Patient counseled regarding my diagnostic impression and care plan. Prior to discharge all questions answered. Pt agrees with treatment plan and understands strict return precautions. Pt is instructed to follow up with primary care provider within 24-48 hours. Precautionary instructions provided including instructions to return to the ER if not improving or for any worsening or changing symptoms or concerns. Departure Diagnosis: Primary Impression: Cystitis Additional Impression: Abdominal pain Condition: Stable Patient Instructions: Abdominal Pain, Cystitis Additional Instructions: Call your primary care doctor TOMORROW for an appointment during the next 1-2 days.See the doctor sooner or return here if your condition worsens before your appointment time. CLAIRE FRASER PA-C Jul 27, 2017 20:36
== END 2017-07-27 20:43 | disposition home or self-care (01) ==
LOC: FTE 18:36
DX: N30.90 Cystitis, unspecified without hematuria (principal); R11.2 Nausea with vomiting, unspecified; Z87.891 Personal history of nicotine dependence
CPT/HCPCS: 36415; 74176; 80053; 81001; 83690; 85025; 96374; 96375; J2270; J2405; Z7502

== ENCOUNTER 2017-10-22 11:13 | Emergency (ER) | END 2017-10-22 16:07 | disposition home or self-care (01) ==

== ENCOUNTER 2018-03-03 15:26 | Emergency (ER) | END 2018-03-03 17:02 | disposition home or self-care (01) ==

== ENCOUNTER 2018-03-07 06:19 | Emergency (ER) | END 2018-03-07 08:37 | disposition home or self-care (01) ==

== ENCOUNTER 2018-10-03 15:13 | Emergency (ER) | payer OTHER ==
[~2018-10-03] VITALS: Ht 167.6 cm; Wt 84.4 kg
[~2018-10-03 15:13] MED LIST changes: -ACET500C5 PO; -AMOX500C2 PO; +CEPH-443 PO; -CLAR500T39 PO; +IBUP-1542 PO; -METO10TA96 PO; -OMEP20CA16 PO; -ONDA-43 PO; +ONDA4TAB14 PO; -SENN-53 PO; +SULF1TAB31 PO; -TRAM50TA2 PO
[2018-10-03 15:17] VITALS: Ht 167.6 cm; Wt 84.4 kg
[2018-10-03] MEDS ORDERED: KETOROLAC 15 MG INJ IV STA (15:34)
[2018-10-03] MEDS ORDERED: ONDANSETRON 4 MG INJ IV STA (15:34)
[2018-10-03] MEDS ORDERED: SOD CHLORIDE 0.9% 1,000 ML IV STA (15:34)
--- NOTE | 2018-10-03 15:48 | ERD ---
ER Documentation Chief Complaint Chief Complaint DIFFUSED AP N/V/D AND FEBRIEL X1DAY PT DIAPHORETIC ACTIVELY VOMITING HPI 33-year-old female presents to the emergency room less than 24 hours of symptoms that include nonbloody nonbilious emesis, loose watery stool and diffuse cramping abdominal discomfort. No recent travel, sick contacts, antibiotics. The patient's last 2 episodes of vomiting have had some small blood streaks. She denies alcohol abuse. Pain is noted to be 8 out of 10 currently. Subjective fevers at home. ROS All systems reviewed and are negative except as per history of present illness. Medications Home Meds Active Scripts Ondansetron (Ondansetron Odt) 4 Mg Tab.rapdis, 4 MG PO Q6H PRN for NAUSEA AND/OR VOMITING, #20 TAB Prov:HUMA DENG MD 10/03/18 Dicyclomine HCl (Dicyclomine HCl) 10 Mg Capsule, 10 MG PO TID PRN for ABDOMINAL CRAMPING, #20 CAP Prov:HUMA DENG MD 10/03/18 Discontinued Scripts Ibuprofen* (Motrin*) 600 Mg Tab, 600 MG PO Q6, #30 TAB Prov:MODESTO MEDRANO PA-C 03/03/18 Sulfamethoxazole/Trimethoprim* (Bactrim Ds* Tablet) 1 Each Tablet, 1 TAB PO BID, #14 TAB Prov:MODESTO MEDRANO PA-C 03/03/18 Cephalexin* (Keflex*) 500 Mg Capsule, 500 MG PO QID for 7 Days, CAP Prov:MODESTO MEDRANO PA-C 03/03/18 Pantoprazole* (Protonix*) 40 Mg Tablet.dr, 40 MG PO DAILY, #20 TAB Prov:CHAVA BURT MD 01/18/18 Ibuprofen* (Motrin*) 600 Mg Tab, 600 MG PO Q6H PRN for PAIN AND OR ELEVATED TEMP, #15 TAB Prov:CHAVA BURT MD 01/18/18 Ondansetron (Ondansetron Odt) 4 Mg Tab.rapdis, 4 MG PO Q6H PRN for NAUSEA AND/OR VOMITING, #10 TAB Prov:CHAVA BURT MD 01/18/18 Allergies Allergies: Coded Allergies: No Known Allergy (Unverified , 10/03/18) PMhx/Soc History of Surgery: No Anesthesia Reaction: No Hx Neurological Disorder: No Hx Respiratory Disorders: No Hx Cardiac Disorders: No Hx Psychiatric Problems: No Hx Miscellaneous Medical Probl: No Hx Alcohol Use: No Hx Substance Use: No Hx Tobacco Use: No Smoking Status: Never smoker FmHx Family History: No diabetes Physical Exam Vitals Vital Signs Date Temp Pulse Resp B/P (MAP) Pulse Ox O2 O2 Flow FiO2 Time Delivery Rate 10/03/18 97.7 79 20 130/71 98 Room Air 15:35 (90) 10/03/18 97.7 59 20 126/66 98 15:17 (86) Physical Exam General: Dry heaving Head: Normocephalic, atraumatic. Eyes: Pupils equally reactive, EOM intact ENT: Moist mucous membranes Neck: Supple, no lymphadenopathy Respiratory: Lungs clear bilaterally, no distress Cardiovascular: RRR, no murmurs, rubs, or gallops Abdominal: Soft, non-tender, non-distended, no peritoneal signs, negative Pineda sign, no tenderness to McBurney's point : Deferred MSK: No edema, no unilateral swelling, 5/5 strength Neurologic: Alert and oriented, moving all extremities, normal speech, no focal weakness, no cerebellar signs Skin: No rash Psych: Normal mood Result Diagram: 10/03/18 1545 10/03/18 1545 Results 24 hrs Laboratory Tests Test 10/03/18 15:45 White Blood Count 13.2 10^3/ul Red Blood Count 4.79 10^6/ul Hemoglobin 13.4 g/dl Hematocrit 41.8 % Mean Corpuscular Volume 87.3 fl Mean Corpuscular Hemoglobin 28.0 pg Mean Corpuscular Hemoglobin Concent 32.1 g/dl Red Cell Distribution Width 14.0 % Platelet Count 222 10^3/UL Mean Platelet Volume 10.0 fl Immature Granulocytes % 0.300 % Neutrophils % 78.7 % Lymphocytes % 14.0 % Monocytes % 5.6 % Eosinophils % 1.1 % Basophils % 0.3 % Nucleated Red Blood Cells % 0.0 /100WBC Immature Granulocytes # 0.040 10^3/ul Neutrophils # 10.4 10^3/ul Lymphocytes # 1.9 10^3/ul Monocytes # 0.7 10^3/ul Eosinophils # 0.1 10^3/ul Basophils # 0.0 10^3/ul Nucleated Red Blood Cells # 0.0 10^3/ul Sodium Level 141 mmol/L Potassium Level 3.8 mmol/L Chloride Level 108 mmol/L Carbon Dioxide Level 26 mmol/L Anion Gap 7 Blood Urea Nitrogen 16 mg/dl Creatinine 0.91 mg/dl Est Glomerular Filtrat Rate mL/min > 60 mL/min Glucose Level 135 mg/dl Calcium Level 9.5 mg/dl Total Bilirubin 0.3 mg/dl Direct Bilirubin 0.00 mg/dl Indirect Bilirubin 0.3 mg/dl Aspartate Amino Transf (AST/SGOT) 36 IU/L Alanine Aminotransferase (ALT/SGPT) 35 IU/L Alkaline Phosphatase 92 IU/L Total Protein 7.4 g/dl Albumin 4.3 g/dl Globulin 3.10 g/dl Albumin/Globulin Ratio 1.38 Lipase 113 U/L Serum HCG, Qualitative NEGATIVE Current Medications Medications Dose Sig/Shalom Start Time Status Last (Trade) Ordered Route PRN Stop Time Admin Dose Reason Admin Sodium 1,000 ml @ Q1H STAT 10/03/18 DC 10/03/18 Chloride 1,000 mls/hr IV 15:34 10/03/18 15:52 16:33 Ondansetron 4 mg ONCE STAT 10/03/18 DC 10/03/18 HCl (Zofran IV 15:34 10/03/18 15:52 Inj) 15:36 Ketorolac 15 mg ONCE STAT 10/03/18 DC 10/03/18 Tromethamine IV 15:34 10/03/18 15:52 (Toradol) 15:36 Dicyclomine 10 mg ONCE ONCE 10/03/18 DC 10/03/18 HCl IM 16:00 10/03/18 16:08 (Bentyl) 16:01 Lorazepam 1 mg ONCE ONCE 10/03/18 DC 10/03/18 (Ativan) IV 16:30 10/03/18 16:29 16:31 Procedures/MDM LAB INTERPRETATION: * Nonspecific leukocytosis but no evidence of hepatobiliary obstruction MEDICAL DECISION MAKING: Patient's presentation is consistent with likely viral gastroenteritis. Abdominal exam is mostly benign. Patient is actively dry heaving and will benefit from IV fluids and symptom control. Scant hematemesis is likely consistent with Georgie-Obrien tear. Low concern for upper GI hemorrhage. Patient's abdominal exam is benign, no indication for CT imaging at this time. Low concern for appendicitis or other acute intra-abdominal process such as obstruction. ER COURSE: * IV was established. The patient was given IV fluids, nausea medication, Bentyl * The patient did require some Ativan for anxiolysis. * She is now resting comfortably. Occasionally when she is sleeping her heart rate dips into the 40s with blood pressure stable. This is likely normal for the patient and is non-clinically significant. * The patient is asking for narcotic medications to go home with. I do not feel that is appropriate. Nonnarcotic medication will be prescribed. Patient can be safely discharged with oral hydration and return precautions that were discussed and understood. * No indication for CT imaging of the abdomen and pelvis. CONSULTATION: None DISPOSITION PLAN: The patient does not have an identifiable emergent medical condition that warrants inpatient hospitalization at this time. The patient is deemed safe for discharge with outpatient follow-up. We discussed follow up with the patient's primary care doctor within 24 to 48 hours as needed. We also discussed return to the emergency room for worsening symptoms or worsening condition. Outpatient referral: None required Discharge Medications: Bentyl and Zofran Departure Diagnosis: Primary Impression: Nausea and vomiting Vomiting type: unspecified Vomiting Intractability: non-intractable Qualified Codes: R11.2 - Nausea with vomiting, unspecified Additional Impressions: Generalized abdominal cramps Georgie-Obrien tear Condition: Stable HUMA DENG MD Oct 03, 2018 15:48
[2018-10-03] MEDS ORDERED: DICYCLOMINE 20 MG INJ IM ONE (16:00)
[2018-10-03] MEDS ORDERED: LORAZEPAM 2 MG INJ IV ONE (16:30)
[2018-10-03] MEDS ORDERED: DICY10CA40 PO (16:50)
[2018-10-03] MEDS ORDERED: ONDA4TAB14 PO (16:50)
[2018-10-03 17:30] VITALS: BP 122/74; PULSE 62; RESP 18
== END 2018-10-03 17:32 | disposition home or self-care (01) ==
LOC: E/R 15:13
DX: K22.6 Gastro-esophageal laceration-hemorrhage syndrome (principal); R11.0 Nausea
CPT/HCPCS: 36415; 80053; 83690; 84703; 85025; 96372; 96374; 96375; J0500; J1885; J2060; J2405; J7030; Z7502